=== PATIENT | female | born 1965 | race Caucasian/White ===

== ENCOUNTER 2017-08-27 23:28 | Emergency (ER) | payer OTHER ==
[2017-08-28] MEDS: ONDANSETRON (ODT) 4 MG TAB ODT (00:51)
== END 2017-08-28 01:42 | disposition home or self-care (01) ==
LOC: FTE 23:28
DX: R19.7 Diarrhea, unspecified (principal); E03.9 Hypothyroidism, unspecified
CPT/HCPCS: 99284